=== PATIENT | male | born 1980 | race Caucasian/White ===

== ENCOUNTER 2018-08-16 12:28 | Emergency (ER) | payer MEDICAID, OTHER, SELFPAY ==
[~2018-08-16] VITALS: Ht 180.3 cm; Wt 80.6 kg
[2018-08-16 12:29] VITALS: BP 136/94
[2018-08-16] MEDS ORDERED: FLUORESCEIN OPHTH 1 MG STRIP OS ONE (13:15)
[2018-08-16] MEDS ORDERED: ERYTHROMYCIN OPHTH OINT OS ONE (13:15)
[2018-08-16] MEDS ORDERED: TETRACAINE 0.5% OPHTH SOLN 4ML OS ONE (13:15)
[2018-08-16] MEDS ORDERED: ERYT1OIN26 OS (13:18)
== END 2018-08-16 13:26 | disposition home or self-care (01) ==
LOC: M ED 12:28
DX: S05.02XA Injury of conjunctiva and corneal abrasion without foreign body, left eye, initial encounter (principal); X58.XXXA Exposure to other specified factors, initial encounter; Y92.9 Unspecified place or not applicable; Y93.9 Activity, unspecified; Y99.9 Unspecified external cause status; R51 Headache; Z91.040 Latex allergy status

== ENCOUNTER 2020-04-14 09:47 | Emergency (ER) | payer MEDICAID, OTHER ==
[~2020-04-14] VITALS: Ht 180.3 cm; Wt 81.8 kg
[~2020-04-14 09:47] MED LIST: ERYT5OIN25 OS
--- OUTSIDE RECORDS SUMMARY | 2020-04-14 09:54 | CCD ---
Author Author [facility] Organization [facility] Address Unknown Phone Unavailable Care Team Providers Care Bottle Dealer Name Role Phone Giovana ALCOCER MD Unavailable Unavailable Giovana ALCOCER MD Unavailable Unavailable Giovana ALCOCER MD Unavailable Unavailable Giovana ALCOCER MD Unavailable Unavailable Giovana ALCOCER MD Unavailable Unavailable Giovana ALCOCER MD Unavailable Unavailable Giovana ALCOCER MD Unavailable Unavailable Giovana ALCOCER MD Unavailable Unavailable Giovana ALCOCER MD Unavailable Unavailable Giovana ALCOCER MD Unavailable Unavailable Giovana ALCOCER MD Unavailable Unavailable Giovana ALCOCER MD Unavailable Unavailable Giovana ALCOCER MD Unavailable Unavailable Giovana ALCOCER MD Unavailable Unavailable Giovana ALCOCER MD Unavailable Unavailable Giovana ALCOCER MD Unavailable Unavailable Giovana ALCOCER MD Unavailable Unavailable Giovana ALCOCER MD Unavailable Unavailable Giovana ALCOCER MD Unavailable Unavailable Giovana ALCOCER MD Unavailable Unavailable Giovana ALCOCER MD Unavailable Unavailable Giovana ALCOCER MD Unavailable Unavailable Giovana ALCOCER MD Unavailable Unavailable Giovana ALCOCER MD Unavailable Unavailable Giovana ALCOCER MD Unavailable Unavailable Giovana ALCOCER MD Unavailable Unavailable Giovana ALCOCER MD Unavailable Unavailable Giovana ALCOCER MD Unavailable Unavailable Giovana ALCOCER MD Unavailable Unavailable Giovana ALCOCER MD Unavailable Unavailable Giovana ALCOCER MD Unavailable Unavailable Giovana ALCOCER MD Unavailable Unavailable Giovana ALCOCER MD Unavailable Unavailable Giovana ALCOCER MD Unavailable Unavailable Giovana ALCOCER MD Unavailable Unavailable Giovana ALCOCER MD Unavailable Unavailable Giovana ALCOCER MD Unavailable Unavailable Giovana ALCOCER MD Unavailable Unavailable Giovana ALCOCER MD Unavailable Unavailable Giovana ALCOCER MD Unavailable Unavailable Giovana ALCOCER MD Unavailable Unavailable Gioavna ALCOCER MD Unavailable Unavailable Giovaan ALCOCER MD Unavailable Unavailable Giovana ALCOCER MD Unavailable Unavailable Giovana ALCOCER MD Unavailable Unavailable Giovana ALCOCER MD Unavailable Unavailable Giovana ALCOCER MD Unavailable Unavailable Giovana ALCOCER MD Unavailable Unavailable Giovana ALCOCER MD Unavailable Unavailable Giovana ALCOCER MD Unavailable Unavailable Giovana ALCOCER MD Unavailable Unavailable Giovana ALCOCER MD Unavailable Unavailable Giovana ALCOCER MD Unavailable Unavailable Giovana ALCOCER MD Unavailable Unavailable Giovana ALCOCER MD Unavailable Unavailable Giovana ALCOCER MD Unavailable Unavailable Giovana ALCOCER MD Unavailable Unavailable Giovana ALCOCER MD Unavailable Unavailable Giovana ALCOCER MD Unavailable Unavailable Giovana ALCOCER MD Unavailable Unavailable Giovana ALCOCER MD Unavailable Unavailable Giovana ALCOCER MD Unavailable Unavailable Giovana ALCOCER MD Unavailable Unavailable Giovana ALCOCER MD Unavailable Unavailable Giovana ALCOCER MD Unavailable Unavailable Giovana ALCOCER MD Unavailable Unavailable Giovana ALCOCER MD Unavailable Unavailable Giovana ALCOCER MD Unavailable Unavailable Giovana ALCOCER MD Unavailable Unavailable Giovana ALCOCER MD Unavailable Unavailable Giovana ALCOCER MD Unavailable Unavailable Giovana ALCOCER MD Unavailable Unavailable CARLYN, T ALY HELLER Unavailable Unavailable CARLYN, T ALY HELLER Unavailable Unavailable CARLYN, T ALY HELLER Unavailable Unavailable CARLYN, T ALY HELLER Unavailable Unavailable CARLYN, T ALY HELLER Unavailable Unavailable CARLYN, T ALY HELLER Unavailable Unavailable CARLYN, T ALY HELLER Unavailable Unavailable CARLYN, T ALY HELLER Unavailable Unavailable CARLYN, T ALY HELLER Unavailable Unavailable CARLYN, T ALY HELLER Unavailable Unavailable CARLYN, T ALY HELLER Unavailable Unavailable Re-disclosure Warning The records that you are about to access may contain information from federally-assisted alcohol or drug abuse programs. If such information is present, then the following federally mandated warning applies: This information has been disclosed to you from records protected by federal confidentiality rules (42 CFR part 2). The federal rules prohibit you from making any further disclosure of this information unless further disclosure is expressly permitted by the written consent of the person to whom it pertains or as otherwise permitted by 42 CFR part 2. A general authorization for the release of medical or other information is NOT sufficient for this purpose. The Federal rules restrict any use of the information to criminally investigate or prosecute any alcohol or drug abuse patient.The records that you are about to access may contain highly sensitive health information, the redisclosure of which is protected by Article 27-F of the [facility] Public Health law. If you continue you may have access to information: Regarding HIV / AIDS; Provided by facilities licensed or operated by the [facility] Office of Mental Health; or Provided by the [facility] Office for People With Developmental Disabilities. If such information is present, then the following [facility] mandated warning applies: This information has been disclosed to you from confidential records which are protected by state law. State law prohibits you from making any further disclosure of this information without the specific written consent of the person to whom it pertains, or as otherwise permitted by law. Any unauthorized further disclosure in violation of state law may result in a fine or alf sentence or both. A general authorization for the release of medical or other information is NOT sufficient authorization for further disc losure. Family History Family Member Name Family Member Gender Family Member Status Date o f Status Description Data Source(s) Unknown Unknown Problem [facility] ([facility] Encounters Encounter Providers Location Date Indications Data Source(s ) Outpatient Attender: ALY ALCOCER MD 11/26/2019 11:58:01 A [facility] Outpatient Attender: ALY ALCOCER MD 11/26/2019 11:58:00 [facility] Outpatient Attender: ALY ALCOCER MD 07/28/2019 12:03:08 A [facility] Outpatient Attender: ALY ALCOCER MD 05/16/2019 02:31:00 [facility] Outpatient Attender: ALY ALCOCER MD 05/15/2019 01:33:01 P [facility] Outpatient Attender: ALY ALCOCER MD 05/15/2019 01:32:01 P [facility] Outpatient Attender: ALY ALCOCER MD 05/15/2019 01:31:00 P [facility] Outpatient Attender: ALY ALCOCER MD 05/15/2019 01:30:02 P [facility] Outpatient Attender: ALY ALCOCER MD 05/15/2019 01:29:01 P [facility] Outpatient Attender: ALY ALCOCER MD 05/15/2019 12:50:02 P [facility] Outpatient Attender: ALY ALCOCER MD 05/15/2019 12:47:00 P [facility] Outpatient Attender: ALY ALCOCER MD 05/15/2019 12:44:00 P [facility] Outpatient Attender: ALY ALCOCER MD 04/16/2019 08:56:[address] [facility] Outpatient Attender: ALY ALCOCER MD 04/16/2019 08:56:[address] [facility] Outpatient Attender: ALY ALCOCER MD 04/16/2019 08:54:[address] [facility] Outpatient Attender: ALY ALCOCER MD 04/16/2019 08:08:01 A [facility] Family Health Insurance Providers Payer name Policy type / Coverage type Policy ID Covered democrat ID Covered democrat's relationship to gallagher Policy Gallagher Plan Information EMEDNY [id number] SP [id number] Self Pay P [id number] S [id number] Self Pay P UNAVAILABLE S UNAVAILA BLE Managed Care Lawson Rubalcava [id number] S [id number] Medicaid S [id number] S [id number] MEDICAID [id number] SP [id number] SELF PAY ONLY [id number] SP [id number] MEDICAID [id number] SP [id number] UN COMMUNITY PLAN [facility] [id number] SP [id number] [facility] O [id number] S [id number] SELF PAY UNAVAILABLE SP UNAVAILA BLE UNHC AMERICHOICE XIX -HMO [id number] [id number] [facility] Community Plan Health Maintenance Organization (HMO) Self MEDICAID S [id number] S [id number] WORKERS COMP W/OI NFO P FABCO S FABCO HMO BLUE [id number] SP [id number] Problems, Conditions, and Diagnoses Code Display Name Description Problem Type Effective Dates Data Source(s) K62.89 Other specified diseases of anus and rectum Rectal madeleine n 11/26/2019 11:57:11 AM EDT [facility] [id number] Acute upper respiratory infection, unspe cified Acute upper respiratory infection, unspecified 04/16/2019 08:55:48 AM [facility] 487.1 Influenza Influenza 04/16/2019 08:55:48 AM [facility] [id number] Unspecified asthma with (acute) exacerba tion Unspecified asthma with (acute) exacerbation 04/16/2019 08:55:48 AM [facility] Results ID Date Data Source [id number] 11/26/2019 11:03:20 AM [facility] Measurements & CalculationsHeight: 71 inches (5 ft. 11 in.) 180.34 cm Weight: 188 pounds 85.45 kg Body Mass Index (BMI): 26.32BMI Interpretation: OverweightBody Surface Area (BSA): 2.06Weight Management Education Done (Nutrition/Physical Activity)Vital SignsTemperature: 97.3FPulse Rate: 83 beats/minuteRespiratory Rate: 16 respirations/minuteBlood Pressure: 116/92 Vital Signs performed by: Yana Blake MA, November 26, 2019 11:12 AMInitial Intake Information From: patientRoom #: 13Infectious Disease / Travel ScreeningRecent travel for you or any close contacts? NoHave you had any close contact with anyone diagnosed with or under investigation for COVID-19 (coronavirus)? NoFever? NoRespiratory symptoms: cough, cold, congestion, shortness of breath, difficulty breathing? NoLoss of smell? NoLoss of taste? NoSmoking, Tobacco, Vaping or Smoke Exposure StatusSmoke Status: never smokerTobacco Use: NoDo you vape? NoHealthcare HistorySince your last office visit...Have you been admitted to the hospital? NoHave you been to an emergency room (ER) or urgent care clinic? NoHave you seen another healthcare provider? NoHave you seen a dentist? Yes - NOCOIntake performed by: Yana Blake MA, November 26, 2019 11:10 AMRate Your HealthIn general, would you say your health is? Very GoodPain AssessmentAre you currently having any pain which... You would like your provider to address? No Affects your activity level? NoDepression Screening - PHQ-2Over the last two weeks, have you... Had little interest or pleasure in doing things? Not at all Been feeling down, depressed, or hopeless? Not at all PHQ-2 Score: 0Anxiety Screening - WEI-2Over the last two weeks, have you been... Feeling nervous, anxious, or on edge? Not at all Unable to stop or control worrying? Not at all WEI-2 Score: 0Screening, Brief Intervention, & Referral to Treatment (SBIRT)Pre-Screening Questions How many times have you have 5 or more drinks in a day? 0How many times have you used an illegal drug or used a prescription medication for a non-medical reason? 365Performed by: Yana Blake MA, November 26, 2019 11:10 AMPatient History Medical History:AsthmaSurgical History:AppendectomyFamily History:Hypertension (Mother, Maternal Grandmother)Hypertension (Father)Stroke (Mother, Father)Cancer - Unknown (Maternal Grandmother, Maternal Grandfather, Paternal Grandmother, Paternal Grandfather)Social/Personal History: Chief Complaintpossible hemorrhoidsHistory of Present Illness (HPI)Has had rectal discomfort, burning with BMs for the past 4-5 years. No better and no worse with time. Some relief with hemorrhoid cream and warm soaks. No other GI symptoms.His family was recently exposed to COVID 19. He has been asymptomatic.They reportedly all tested negative and he is requesting a note to go back to work. He is given one today.HPI performed by: Surya Valdez MD, November 26, 2019 11:49 AMTransitions of Care InboundProblem ReviewProblem List was reviewed and/or updated during this visit.Medication Reconciliation & ReviewMedication List was reviewed and/or updated during this visit, including review of any stll-rml-mmpsjwy medications, herbal therapies, and/or supplements.Allergy ReviewAllergy List was reviewed and/or updated during this visit.Adult Preventive CareProvider Calculated and Reviewed all Clinical Protocols for patient today. Labs/Meds/Other Counseling- Nutrition and Physical Activity:BMI Interpretation: Overweight (11/26/2019) Counseling: Done (11/26/2019) Physical Activity: Done (11/26/2019)Review of Systems General: Denies dizziness, fatigue. Cardiovascular: Denies chest pain. Respiratory: Denies shortness of breath. Gastrointestinal: Denies diarrhea, constipation. Genitourinary: Denies burning with urination, urinary frequency, urinary urgency. Physical ExamGeneral Appearance: well nourished, well hydrated, no acute distressRespiratory, Auscultation: clear to auscultation bilaterally; no rales, rhonchi, or wheezesRespiratory, Effort: no intercostal retractions or use of accessory musclesCardiovascular, Auscultation: S1, S2 audible; no murmur, rub, or gallop; RRRSkin, Inspection: Small hemorrhoid noted and possible anal fissure.Care Management Plan Transitions of CareInboundRate Your HealthIn general, would you say your health is? Very GoodAssessment & Plan Problems:Added: Rectal pain (ICD-569.42) (JVM62-O71.89) Assessment: Instructions: Possibly hemorrhoid, possibly anal fissure.Will refer to colorectal surgeon.Patient Instructions/Care Plan: Rectal pain: Possibly hemorrhoid, possibly anal fissure.Will refer to colorectal surgeon. Plan developed in collaboration with patient and/or familyMedications:ALLERGY RELIEF TABLETPROAIR HFA 108 (90 BASE) MCG/ACT INHALATION AEROSOL SOLUTIONADVIL 200 MG ORAL CAPSULEMedication Changes:Added: ALLERGY RELIEF TABLET-prnRemoved:AZITHROMYCIN 250 MG ORAL TABLET-2 tabs po day 1, then one tab po QD, CEFDINIR 300 MG ORAL CAPSULE-2 caps po QDAllergies:* LATEX (Critical)* LEMON (Critical)Orders:Adult - Ofc Vst, EST, Level III [CPT- 55124] Surgical Consult [CPT-41085] ____ Name Value Range Interpretation Code Description Data Shyanne rce(s) Supporting Document(s) ID Date Data Source [id number] 05/15/2019 12:47:18 PM EDT [facility] Measurements & CalculationsHeight: 71 inches (5 ft. 11 in.) 180.34 cm Weight: 190 pounds 86.36 kg Body Mass Index (BMI): 26.60BMI Interpretation: OverweightBody Surface Area (BSA): 2.07Weight Management Education Done (Nutrition/Physical Activity)Vital SignsTemperature: 98.4F oral Pulse Rate: 100 beats/minuteRespiratory Rate: 18 respirations/minuteBlood Pressure: 123/88 right arm sitting automaticO2 Saturation: 94% room airVital Signs performed by: Irvin Fam MA, May 15, 2019 1:03 PMInitial Intake Information from: patientRoom #: 14Smoking, Tobacco, Vaping or Smoke Exposure StatusSmoke Status: never smokerTobacco Use: NoDo you vape? NoPassive Smoke Exposure: NoHealthcare HistorySince your last office visit...Have you been admitted to the hospital? NoHave you been to an emergency room (ER) or urgent care clinic? NoHave you seen another healthcare provider? NoHave you seen a dentist? Yes - NOCOIntake performed by: Irvin Fam MA, May 15, 2019 12:52 PMRate Your HealthIn general, would you say your health is? GoodPain AssessmentAre you currently having any pain which... You would like your provider to address? Yes Affects your activity level? YesDepression Screening - PHQ-2Over the last two weeks, have you... Had little interest or pleasure in doing things? Not at all Been feeling down, depressed, or hopeless? Not at all PHQ-2 Score: 0Anxiety Screening - WEI-2Over the last two weeks, have you been... Feeling nervous, anxious, or on edge? Not at all Unable to stop or control worrying? Not at all WEI-2 Score: 0Food InsecurityWithin the past year...Did you worry whether your food would run out before you got money to buy more? NoWas there a time when the food you bought didn't last and you didn't have money to get more? NoInfectious Disease / Travel ScreeningRecent travel for you, your family, and/or any sexual partners? NoPain AssessmentPain ScaleNumeric Rating Scale: 7 / 10Location: backDuration: 1 monthFrequency: DailyCharacter/Quality: aching and stabbingIs the pain radiating? NoScreening, Brief Intervention, & Referral to Treatment (SBIRT)Pre-Screening Questions How many times have you have 5 or more drinks in a day? 0How many times have you used an illegal drug or used a prescription medication for a non-medical reason? 0Performed by: Irvin Fam MA, May 15, 2019 12:54 PMPatient History Family History:Hypertension (Mother, Maternal Grandmother)Hypertension (Father)Stroke (Mother, Father)Cancer - Unknown (Maternal Grandmother, Maternal Grandfather, Paternal Grandmother, Paternal Grandfather)Social/Personal History: Chief Complaintpossible strepHistory of Present Illness (HPI)38 yr old male Pt here today for strep like symptoms. Pt is complaining of soar throat and back pain. Pt states he feels drained and was sent home from work. Pt is also complaing of SOB with activity. Johny Hinojosa MA, am scribing for, and in the presence of, Al Porras, DO pt states he had strep last month he was achy. pt states they cleaned theyre house well they changed toothbrushes, they took all pre cautions. pt states he is having the same symptoms as before. DO states pt does have strep again. pt complains of a runny nose that does not stop. pt advised to drink hot liquid with honey. for the cough that he has with out phlegm coming up. pt is congested in his lungs. pt states he has been sick since about january. pt states it comes an goes with treatment. pt states that he has started having diahreea today. pt advised to eat yogurt. Transitions of Care InboundProblem ReviewProblem List was reviewed and/or updated during this visit.Medication Reconciliation & ReviewMedication List was reviewed and/or updated during this visit, including review of any uieu-ffk-mqngzcx medications, herbal therapies, and/or supplements.Allergy ReviewAllergy List was reviewed and/or updated during this visit.Adult Preventive CareProvider Calculated and Reviewed all Clinical Protocols for patient today. Labs/Meds/Other Counseling- Nutrition and Physical Activity:BMI Interpretation: Overweight (05/15/2019) Counseling: Done (05/15/2019) Physical Activity: Done (05/15/2019)Review of Systems General: Complains of chills, sweats. Ears/Nose/Throat: Complains of nasal congestion, runny nose, sore throat. Cardiovascular: Denies chest pain, palpitations, feeling faint, trouble breathing w/exertion, SOB upon lying down, SOB at night, peripheral edema, elevated blood pressure, decreased heart rate. Respiratory: Complains of cough, shortness of breath. Gastrointestinal: Complains of diarrhea. Musculoskeletal: Complains of body aches. Physical ExamGeneral Appearance: appears sickNasal: turbs congestedPharynx: throat beefy redRespiratory, Auscultation: moderate rhonchiRespiratory, Effort: no intercostal retractions or use of accessory musclesCardiovascular, Auscultation: S1, S2 audible; no murmur, rub, or gallop; RRRAbdomen: soft, non-tender, no masses, bowel sounds normalGait & Station: normalOrientation: oriented to time, place, and personMood & Affect: no depression, anxiety, or agitationJudgment & Insight: intactCare Management Plan Transitions of CareInboundRate Your HealthIn general, would you say your health is? GoodAssessment & Plan Assessment not SavedAcute upper respiratory infection; unspecified (QYG14-F22.9): restart abx. Use theraflu for sx.Medications:AZITHROMYCIN 250 MG ORAL TABLETCEFDINIR 300 MG ORAL CAPSULEPROAIR HFA 108 (90 BASE) MCG/ACT INHALATION AEROSOL SOLUTIONADVIL 200 MG ORAL CAPSULEMedication Changes:New Prescription:CEFDINIR 300 MG ORAL CAPSULE-2 caps po QD Qty: 20[Capsule] Refills: 0 Method: ElectronicAZITHROMYCIN 250 MG ORAL TABLET-2 tabs po day 1, then one tab po QD Qty: 6[Tablet] Refills: 6 Method: ElectronicRemoved:* ALBUTEROLAllergies:* LATEX (Critical)* LEMON (Critical)Orders:Adult - Ofc Vst, EST, Level III [CPT- 00811] Medications:AZITHROMYCIN 250 MG ORAL TABLET (AZITHROMYCIN) 2 tabs po day 1, then one tab po QD #6[Tablet] x 6 Route:ORAL Entered and Authorized by: Al Porras DO Method used: Electronically to [facility]* (retail) [address] [place] [address] Note to Pharmacy: Route: ORAL; RxID: [id number] 300 MG ORAL CAPSULE (CEFDINIR) 2 caps po QD #20[Capsule] x 0 Route:ORAL Entered and Authorized by: Al Porras DO Method used: Electronically to [facility] (retail) [address] [place] [address] Note to Pharmacy: Route: ORAL; RxID: [id number]][Immunization Management] Name Value Range Interpretation Code Description Data Shyanne rce(s) Supporting Document(s) ID Date Data Source [id number] 04/16/2019 08:15:45 AM [facility] Measurements & CalculationsHeight: 71 inches 180.34 cm Weight: 185.2 pounds 84.18 kg Body Mass Index (BMI): 25.92BMI Interpretation: OverweightBody Surface Area (BSA): 2.04Weight Management Education Done (Nutrition/Physical Activity)Vital SignsTemperature: 98.8F oral Pulse Rate: 112 beats/minuteRespiratory Rate: 22 respirations/minuteBlood Pressure: 101/61 left arm sitting automaticO2 Saturation: 99% room airVital Signs performed by: Johny Manrique MA, April 16, 2019 8:23 AMInitial Intake Information from: [facility] #: 13Smoking, Tobacco, Vaping or Smoke Exposure StatusSmoke Status: never smokerDo you vape? NoPassive Smoke Exposure: NoHealthcare HistorySince your last office visit...Have you been admitted to the hospital? NoHave you been to an emergency room (ER) or urgent care clinic? NoHave you seen another healthcare provider? NoHave you seen a dentist? Yes - NOCOIntake performed by: Johny Manrique MA, April 16, 2019 8:23 AMRate Your HealthIn general, would you say your health is? FairPain AssessmentAre you currently having any pain which... You would like your provider to address? Yes Affects your activity level? YesInfectious Disease / Travel ScreeningRecent travel for you, your family, and/or any sexual partners? NoPain AssessmentLocation: backCharacter/Quality: stabbingIs the pain radiating? YesTo what body part(s) is the pain radiating? whole back down to legsScreening, Brief Intervention, & Referral to Treatment (SBIRT)Pre-Screening Questions How many times have you have 5 or more drinks in a day? 0How many times have you used an illegal drug or used a prescription medication for a non-medical reason? 0Performed by: Johny Manrique MA, April 16, 2019 8:24 AMPatient History Medical History:AsthmaSurgical History:AppendectomyFamily History:Hypertension (Mother, Maternal Grandmother)Hypertension (Father)Stroke (Mother, Fat her)Social/Personal History: Chief Complaintpossibe fluHistory of Present Illness (HPI)IDeepika MA, am scribing for and in the presence of, Dr Al Porras, DO38 yo male here for a walk in [facility] for possible flu.gagging, hard to breathe, pt throwing up, pt did not sleep last night, temp of 103,. pt stated he cannot keep down fluid. headache for three days. body tremors, hot and cold. sweating. has been exposed to flu A.patient is wheezing. states that he is still having the pain from his R Shoulder & neck. Theraflu OTC for Cold & Flu, have advised to use this in warm water. have advsied to use the BRAT diet. Taken out of work until 04/22/2019Coughing up yellow/green phlegm and after PE found tht fazal does have strep, will send antibiotics for this as well. Transitions of Care InboundProblem ReviewProblem List was reviewed and/or updated during this visit.Medication Reconciliation & ReviewMedication List was reviewed and/or updated during this visit, including review of any uhza-oso-dtwdhds medications, herbal therapies, and/or supplements.Allergy ReviewAllergy List was reviewed and/or updated during this visit.Adult Preventive CareLabs/Meds/Other Counseling-Nutrition and Physical Activity:BMI Interpretation: Overweight (04/16/2019) Counseling: Done (04/16/2019) Physical Activity: Done (04/16/2019)Review of Systems General: Complains of chills, fatigue, fever, headache, feeling ill, sweats, night sweats, sleep disturbances. fever tp 103Ears/Nose/Throat: Complains of runny nose, sore throat. coughing up copious green sputumCardiovascular: Complains of SOB upon lying down, SOB at night. Respiratory: Complains of cough, difficulty breathing, shortness of breath, wheezing. Gastrointestinal: Complains of diarrhea. Physical ExamGeneral Appearance: not feeling wellEyes, External: conjunctivae and lids normal, EOMIExternal Ears: normal, no lesions or deformitiesHearing: grossly intactOtoscopy: canals clear, tympanic membranes intact, no fluid, light reflex intact bilaterallyExternal Nose: normal, no lesions or deformitiesNasal: mucosa, septum, and turbinates normal, nares patentLips/Teeth/Gums: normal dentition, no gingival inflammation, no labial lesionsPharynx: throat beefy redRespiratory, Auscultation: bilat wheezes/rhonciRespiratory, Effort: no intercostal retractions or use of accessory musclesCardiovascular, Auscultation: S1, S2 audible; no murmur, rub, or gallop; RRRPeripheral Circulation: no clubbing, cyanosis, edema, or varicositiesAbdomen: soft, non-tender, no masses, bowel sounds normalGait & Station: normalSkin, Inspection: no rashes, lesions, or ulcerationsOrientation: oriented to time, place, and personMood & Affect: no depression, anxiety, or agitationJudgment & Insight: intactCare Management Plan Transitions of CareInboundRate Your HealthIn general, would you say your health is? FairAssessment & Plan Problems:Added: Unspecified asthma with (acute) exacerbation (CCF08-G70.901)Influenza (ICD-487.1) (XZG84-L94.1)Acute upper respiratory infection, unspecified (FHC24-Z45.9)Assessment not SavedAcute upper respiratory infection; unspecified (VEV16-X77.9): coupled w/flu with wheezing, prescribed Ceftin, OTC cold medsMedications:PROAIR HFA 108 (90 BASE) MCG/ACT INHALATION AEROSOL SOLUTIONCEFUROXIME AXETIL 500 MG ORAL TABLETADVIL 200 MG ORAL CAPSULEALBUTEROLMedication Changes:Refilled:* ALBUTEROL Qty: 0 Refills: 0 Me thod: Print then Give to PatientNew Prescription:CEFUROXIME AXETIL 500 MG ORAL TABLET-one tablet po BID X 10 days Qty: 20[Tablet] Refills: 0 Method: ElectronicPROAIR HFA 108 (90 BASE) MCG/ACT INHALATION AEROSOL SOLUTION-2 puffs q 4h prn SOB Qty: 1[Inhaler] Refills: 3 Method: ElectronicRemoved:CHANTIX CONTINUING MONTH LENY 1 MG ORAL TABLET-uad- begin after starter pack completed Qty: 1[Tablet] Refills: 5, CHANTIX STARTING MONTH LENY 0.5 MG X 11 & 1 MG X 42 ORAL TABLET-uad Qty: 1[Tablet] Refills: 0Allergies:* LATEX (Critical)* LEMON (Critical)Orders:Adult - Ofc Vst, EST, Level IV [CPT-41727] ] Name Value Range Interpretation Code Description Data Shyanne rce(s) Supporting Document(s) Procedure
[2020-04-14] MEDS ORDERED: CYCLOBENZAPRINE 10MG TABLET PO ONE (10:30)
[2020-04-14] MEDS ORDERED: KETOROLAC TROMETHAMINE 10 MG TAB PO ONE (10:30)
--- NOTE | 2020-04-14 10:38 | REP ---
INDICATION: direct blow COMPARISON: None. TECHNIQUE: Internal rotation, external rotation, and Y view. FINDINGS: No acute fracture or dislocation. The acromioclavicular and glenohumeral joints are intact. No periarticular calcifications or degenerative changes are appreciated. Sub acromial space is normal. Surrounding soft tissues are unremarkable. IMPRESSION: Normal right shoulder radiographs. <Electronically signed by Angel Metzger > 04/14/20 5541
--- NOTE | 2020-04-14 10:40 | REP ---
INDICATION: direct blow then fall COMPARISON: None. TECHNIQUE: Frontal view of the chest with multiple views of the right hemithorax. FINDINGS: Frontal view of the chest demonstrates no acute cardiopulmonary process, contusion, effusion, or pneumothorax. Multiple views of the right hemithorax demonstrates no acute rib fracture/injury or pathology. IMPRESSION: Normal rib series. No acute fracture or trauma/injury appreciated. <Electronically signed by Angel Metzger > 04/14/20 1030
--- NOTE | 2020-04-14 10:53 | REP ---
INDICATION: blow to right shoulder then fell COMPARISON: None. TECHNIQUE: Axial noncontrast images from the skull base to the thoracic inlet with coronal and sagittal re-formations This CT examination was performed using the following dose reduction techniques: Automated exposure control, adjustment of mA and/or kv according to the patient's size, and use of iterative reconstruction technique. FINDINGS: Normal alignment and lordosis is maintained. Moderate multilevel degenerative changes include osteophytosis, endplate sclerosis, and disc space narrowing. No acute fracture/compression injury or subluxation. Spinal canal is grossly patent. Posterior elements and spinous processes are intact. Paravertebral soft tissues are within normal limits. IMPRESSION: Moderate multilevel degenerative spondylosis. No acute fracture/compression injury or subluxation. <Electronically signed by Angel Metzger > 04/14/20 104
--- NOTE | 2020-04-14 10:56 | REP ---
INDICATION: blow to right shoulder then fell. COMPARISON: None. TECHNIQUE: Axial noncontrast images of the thoracic spine with coronal and sagittal reformations. FINDINGS: Thoracic vertebral bodies are intact and without acute fracture/compression injury or subluxation. Alignment and kyphosis maintained. Disc spaces are normal. Spinal canal is patent and normal. Posterior elements and spinous processes are intact. Paravertebral soft tissues are normal. IMPRESSION: Normal thoracic spine CT. No evidence for acute trauma/injury. <Electronically signed by Angel Metzger > 04/14/20 6759
--- NOTE | 2020-04-14 10:58 | REP ---
INDICATION: blow to right shoulder then fell. COMPARISON: None. TECHNIQUE: Axial noncontrast images of the lumbosacral spine from mid T12 through mid sacrum with coronal and sagittal reformations. This CT examination was performed using the following dose reduction techniques: Automated exposure control, adjustment of mA and/or kv according to the patient's size, and use of iterative reconstruction technique. FINDINGS: Alignment and lordosis maintained. Vertebral bodies are intact. Posterior elements and spinous processes are intact. There is no evidence for acute fracture/compression injury or subluxation. The spinal canal is patent. There is relatively mild degenerative changes including marginal osteophyte formation with very minimal disc space narrowing at L3-4 and to a lesser extent L2-3 and L4-5. The paravertebral soft tissues are normal. IMPRESSION: Mild multilevel degenerative spondylosis.. No evidence for acute fracture/compression injury or subluxation. <Electronically signed by Angel Metzger > 04/14/20 1055
--- OUTSIDE RECORDS SUMMARY | 2020-04-14 11:04 | CCD ---
Author Author [facility] Organization [facility] Address Unknown Phone Unavailable Care Team Providers Care Travel Attendants Name Role Phone Giovana ALCOCER MD Unavailable [...] Unavailable Unavailable Giovana ALCOCER MD Unavailable Unavailable Giovnaa ALCOCER MD Unavailable Unavailable Giovana ALCOCER MD [...] ALY HELLER Unavailable Unavailable CARLYN, T ALY MD Unavailable Unavailable CARLYN, T ALY MD Unavailable Unavailable CARLYN, T ALY MD Unavailable Unavailable CARLYN, T ALY MD Unavailable Unavailable CARLYN, T ALY MD Unavailable Unavailable CARLYN, T ALY MD Unavailable Unavailable CARLYN, T ALY HELLER Unavailable Unavailable CARLYN, T ALY MD Unavailable Unavailable CARLYN, T ALY MD Unavailable Unavailable CARLYN, T ALY MD Unavailable Unavailable Re-disclosure Warning The records that [...] is protected by Article 27-F of the [facility] Public [employer] law. If you continue you may have access to information: Regarding HIV / AIDS; Provided by facilities licensed or operated by the [facility] Office of Mental Health; or Provided by the [facility] Office for People With Developmental Disabilities. If such information is present, then the following [facility] mandated warning applies: This information has been [...] law may result in a fine or custodial sentence or both. A general authorization for [...] Attender: ALY ALCOCER MD 11/26/2019 11:58:01 A [facility] Outpatient Attender: ALY ALCOCER MD 11/26/2019 11:58:00 A [facility] Outpatient Attender: ALY ALCOCER MD 07/28/2019 12:03:08 A [facility] Outpatient Attender: ALY ALCOCER MD 05/16/2019 02:31:00 P [facility] Outpatient Attender: ALY ALCOCER MD 05/15/2019 01:33:01 P [facility] Outpatient Attender: ALY ALCOCER MD 05/15/2019 01:32:01 P [facility] Outpatient Attender: ALY ALCOCER MD 05/15/2019 01:31:00 P [facility] Outpatient Attender: ALY ALCOCER MD 05/15/2019 01:30:02 P [facility] Outpatient Attender: ALY ALCOCER MD 05/15/2019 01:29:01 P [facility] Outpatient Attender: ALY ALCOCER MD 05/15/2019 12:50:02 P [facility] Outpatient Attender: ALY ALCOCER MD 05/15/2019 12:47:00 P [facility] Outpatient Attender: ALY ALCOCER MD 05/15/2019 12:44:00 P [facility] Outpatient Attender: ALY ALCOCER MD 04/16/2019 08:56:02 A [facility] Outpatient Attender: ALY ALCOCER MD 04/16/2019 08:56:01 A [facility] Outpatient Attender: ALY ALCOCER MD 04/16/2019 08:54:00 A [facility] Outpatient Attender: ALY ALCOCER MD 04/16/2019 08:08:01 A [facility] Family Health Insurance Providers Payer name Policy type / Coverage type Policy ID Covered alliance party ID Covered alliance party's relationship to gallagher Policy Gallagher Plan Information DUFFANYS PAINT [employer] BODY [id number] SP [id number] DUFFANYS [id number] SP [id number] EMEDNY [id number] SP [id number] Self Pay P [id number] S [id number] Self Pay P UNAVAILABLE S UNAVAILA BLE Managed Care Lawson P [id number] S [id number] Medicaid S [id number] S [id number] MEDICAID [id number] SP [id number] SELF PAY ONLY [id number] SP [id number] MEDICAID [id number] SP [id number] [facility] [id number] SP [id number] [facility] O [id number] S [id number] SELF PAY UNAVAILABLE SP UNAVAILA BLE [facility] AMERICHOICE XIX -HMO [id number] 18 [id number] [facility] Community Plan Health Maintenance Organization (HMO) Self MEDICAID S [id number] S [id number] WORKERS COMP W/OI NFO P FABCO S FABCO HMO BLUE [id number] SP [id number] Problems, Conditions, and Diagnoses Code Display Name Description Problem Type Effective Dates Data Source(s) K62.89 Other specified diseases of anus and rectum Rectal madeleine n 11/26/2019 11:57:11 AM [facility] [id number] Acute upper respiratory infection, unspe cified Acute upper respiratory infection, unspecified 04/16/2019 08:55:48 AM [facility] 487.1 Influenza Influenza 04/16/2019 08:55:48 AM [facility] [id number] Unspecified asthma with (acute) exacerba tion Unspecified asthma with (acute) exacerbation 04/16/2019 08:55:48 AM [facility] Results ID Date Data Source [id number] 11/26/2019 11:03:20 AM [facility] Measurements & CalculationsHeight: 71 inches [...] during this visit, including review of any bepm-rux-magaitv medications, herbal therapies, and/or supplements.Allergy ReviewAllergy List [...] GoodAssessment & Plan Problems:Added: Rectal pain (ICD-569.42) (PYX59-X74.89) Assessment: Instructions: Possibly hemorrhoid, possibly anal fissure.Will [...] - Ofc Vst, EST, Level III [CPT- 61990] Surgical Consult [CPT-07581] ____ Name Value Range Interpretation Code Description Data Shyanne rce(s) Supporting Document(s) ID Date Data Source [id number] 05/15/2019 12:47:18 PM EDT [facility] Measurements & CalculationsHeight: 71 inches (5 [...] is also complaing of SOB with activity. I, Johny Manrique MA, am scribing for, and in the presence of, Al Porras DO pt states he had strep last [...] during this visit, including review of any ktum-ywk-qpwkdrj medications, herbal therapies, and/or supplements.Allergy ReviewAllergy List [...] Assessment not SavedAcute upper respiratory infection; unspecified (QNC81-K16.9): restart abx. Use theraflu for sx.Medications:AZITHROMYCIN 250 [...] - Ofc Vst, EST, Level III [CPT- 74791] Medications:AZITHROMYCIN 250 MG ORAL TABLET (AZITHROMYCIN) 2 tabs po day 1, then one tab po QD #6[Tablet] x 6 Route:ORAL Entered and Authorized by: Al Porras DO [facility] [address] [place] [address] Note to Pharmacy: Route: ORAL; RxID: [id number] 300 MG ORAL CAPSULE (CEFDINIR) 2 caps po QD #20[Capsule] x 0 Route:ORAL Entered and Authorized by: Al Porras DO Method used: Electronically to [facility] ([facility]) [address] [place] [address] Note to Pharmacy: Route: ORAL; RxID: [id number]][Immunization Management] Name Value Range Interpretation Code Description Data Shyanne rce(s) Supporting Document(s) ID Date Data Source [id number] 04/16/2019 08:15:45 AM [facility] Measurements & CalculationsHeight: 71 inches 180.34 cm Weight: 185.2 pounds 84.18 kg Body Mass Index (BMI): 25.92BMI Interpretation: OverweightBody Surface Area (BSA): 2.04Weight Management Education Done (Nutrition/Physical Activity)Vital SignsTemperature: 98.8F oral Pulse Rate: 112 beats/minuteRespiratory Rate: 22 respirations/minuteBlood Pressure: 101/61 left arm sitting automaticO2 Saturation: 99% room airVital Signs performed by: Johny Manrique MA, April 16, 2019 8:23 AMInitial Intake Information from: ptRoom #: 13Smoking, Tobacco, Vaping or Smoke Exposure [...] History: Chief Complaintpossibe fluHistory of Present Illness (HPI)I, Deepika London MA, am scribing for and in the presence of, Dr Al Porras, DO38 yo male here for a walk in appt for possible flu.gagging, hard to breathe, pt [...] up yellow/green phlegm and after PE found david diehl does have strep, will send antibiotics for this as well. Transitions of Care InboundProblem ReviewProblem List was reviewed and/or updated during this visit.Medication Reconciliation & ReviewMedication List was reviewed and/or updated during this visit, including review of any dfcq-qgm-srezpyb medications, herbal therapies, and/or supplements.Allergy ReviewAllergy List [...] Plan Problems:Added: Unspecified asthma with (acute) exacerbation (KXW75-N29.901)Influenza (ICD-487.1) (CPU21-Z20.1)Acute upper respiratory infection, unspecified (EWR09-V81.9)Assessment not SavedAcute upper respiratory infection; unspecified (PSO29-B91.9): coupled w/flu with wheezing, prescribed Ceftin, OTC [...] (Critical)Orders:Adult - Ofc Vst, EST, Level IV [CPT-24590] ] Name Value Range Interpretation Code Description Data Shyanne rce(s) Supporting Document(s) Procedure
[2020-04-14] MEDS ORDERED: NAPR-837 PO (11:06)
[2020-04-14] MEDS ORDERED: CYCL5TAB PO (11:06)
[2020-04-14 11:15] VITALS: BP 143/72
== END 2020-04-14 11:12 | disposition home or self-care (01) ==
LOC: M ED 09:47
DX: S40.011A Contusion of right shoulder, initial encounter (principal); S29.012A Strain of muscle and tendon of back wall of thorax, initial encounter; S16.1XXA Strain of muscle, fascia and tendon at neck level, initial encounter; W22.8XXA Striking against or struck by other objects, initial encounter; Y92.89 Other specified places as the place of occurrence of the external cause; Y99.0 Civilian activity done for income or pay; J45.909 Unspecified asthma, uncomplicated; F90.9 Attention-deficit hyperactivity disorder, unspecified type; Z91.040 Latex allergy status; F17.220 Nicotine dependence, chewing tobacco, uncomplicated; F12.20 Cannabis dependence, uncomplicated

== ENCOUNTER → 2020-05-19 | Outpatient (REF) | payer MEDICAID, OTHER, SELFPAY ==
[~2020-05-19] MED LIST changes: +ACET-683 PO; +CYCL5TAB PO; +IBUP-1022 PO; +NAPR-837 PO; +PERC5TAB12 PO
== END ==
LOC: M LAB REF 13:19
PROVIDERS: ATTEND Physician Assistant
DX: R07.0 Pain in throat (principal)

== ENCOUNTER 2020-07-01 09:37 | Emergency (ER) | payer MEDICAID, OTHER, SELFPAY ==
[~2020-07-01] VITALS: Ht 180.3 cm; Wt 79.5 kg
[~2020-07-01 09:37] MED LIST changes: -ACET-683 PO; -IBUP-1022 PO; -PERC5TAB12 PO
[2020-07-01 09:38] VITALS: BP 149/77
[2020-07-01] MEDS ORDERED: IBUPROFEN 600MG TAB PO ONE (10:20)
[2020-07-01] MEDS ORDERED: CYCLOBENZAPRINE 10MG TABLET PO ONE (10:20)
[2020-07-01] MEDS ORDERED: PERCOCET 5MG/325MG TAB PO ONE (10:25)
--- NOTE | 2020-07-01 11:12 | REP ---
INDICATION: jump from height, left shoulder and back pain COMPARISON: None. TECHNIQUE: Three views left shoulder. FINDINGS: There is no evidence of acute fracture, dislocation, or intrinsic bone disease. IMPRESSION: No fracture or dislocation. <Electronically signed by Steven Peraza > 07/01/20 1102
--- NOTE | 2020-07-01 11:15 | REP ---
INDICATION: jump from height, left shoulder and back pain. COMPARISON: None. TECHNIQUE: Three views of the thoracic spine are provided. FINDINGS: Thoracic vertebral body heights are preserved. Alignment is normal. Minimal discogenic spurring is seen in the mid and lower thoracic levels on lateral radiograph. The pedicles and posterior elements are intact. No paravertebral soft tissue mass or swelling is seen. Swimmer's lateral view shows degenerative disc disease in the lower cervical spine. No fracture or collapse is seen. IMPRESSION: Mild degenerative disc changes. No fracture or collapse seen. <Electronically signed by Eligio Prajapati > 07/01/20 1111
--- NOTE | 2020-07-01 11:16 | REP ---
INDICATION: jump from height, left shoulder and back pain. COMPARISON: None. TECHNIQUE: Five views of the lumbar spine are obtained. FINDINGS: Lumbar vertebral body heights are preserved. Alignment is normal. No fracture or collapse is seen. There is degenerative disc space narrowing and anterior osteophyte formation at L3-4. Discogenic spurring is seen at L4-5 and L2-3 as well. There is no evidence of spondylolysis or spondylolisthesis. Pedicles and posterior elements are intact. Psoas margins are symmetric. Sacrum and SI joints are unremarkable. IMPRESSION: Degenerative disc disease changes. No traumatic abnormality noted. <Electronically signed by Eligio Prajapati > 07/01/20 1115
--- NOTE | 2020-07-01 11:16 | REP ---
INDICATION: jump from height, left shoulder and back pain. COMPARISON: None. TECHNIQUE: Full series cervical spine performed, 7 views. FINDINGS: There is no compression fracture or malalignment. There is normal cervical lordosis. There is no prevertebral soft tissue swelling. There is mild to moderate diffuse spurring of C4 through C7. There is mild disc space narrowing and subchondral sclerosis at C5-6 and C6-7. There is diffuse narrowing and spurring of the posterior facet joints. Oblique views suggest some degree of neural foraminal narrowing of C4-5, C5-6 and C6-7 on the right. IMPRESSION: Degenerative changes without definite fracture or dislocation. <Electronically signed by Steven Peraza > 07/01/20 111
[2020-07-01] MEDS ORDERED: ACET-683 PO (11:26)
[2020-07-01] MEDS ORDERED: IBUP-1022 PO (11:26)
[2020-07-01] MEDS ORDERED: CYCL5TAB PO (11:26)
[2020-07-01] MEDS ORDERED: PERC5TAB12 PO (11:27)
== END 2020-07-01 11:45 | disposition home or self-care (01) ==
LOC: M ED 09:37
DX: M54.9 Dorsalgia, unspecified (principal); M25.512 Pain in left shoulder; R20.2 Paresthesia of skin; F17.200 Nicotine dependence, unspecified, uncomplicated; M51.36 Other intervertebral disc degeneration, lumbar region; M50.30 Other cervical disc degeneration, unspecified cervical region; Z91.040 Latex allergy status

== ENCOUNTER → 2020-11-12 | Outpatient (CLI) | payer SELFPAY ==
[~2020-11-12] MED LIST changes: +ACET-683 PO; +IBUP-1022 PO; +PERC5TAB12 PO
--- NOTE | 2020-11-12 17:56 | REP ---
INDICATION: UNSPECIFIED ASTHMA, UNCOMPLICATED COMPARISON: 04/14/2020 TECHNIQUE: PA and lateral. FINDINGS: The mediastinum and cardiac silhouette are normal. The lung watkins are clear and without acute consolidation, effusion, or pneumothorax. The skeletal structures are intact and normal. IMPRESSION: No acute cardiopulmonary process. No focal consolidation. <Electronically signed by Angel Metzger > 11/12/20 8404
== END ==
LOC: M RAD 10:30
PROVIDERS: ATTEND Family Medicine Addiction Medicine
DX: J45.909 Unspecified asthma, uncomplicated (principal)

== ENCOUNTER → 2020-12-16 | Outpatient (CLI) | payer MEDICAID, SELFPAY ==
--- NOTE | 2020-12-16 15:38 | REP ---
INDICATION: HEADACHE. COMPARISON: None. TECHNIQUE: CT brain performed in the axial plane. Coronal reconstruction images are performed. FINDINGS: The ventricles are normal in size and position.. There is no midline shift or mass effect. Peraza-white differentiation is well maintained. There is no acute intracranial hemorrhage or extra-axial fluid collection. Bone window examination is unremarkable. The visualized mastoid air cells are clear. There is extensive almost complete opacification of right ethmoid air cells and frontal sinuses. There is moderate diffuse mucosal thickening in the left ethmoid and frontal sinuses as well as the bilateral maxillary and sphenoid sinuses. IMPRESSION: Negative noncontrast CT brain. Diffuse sinusitis. <Electronically signed by Steven Peraza > 12/16/20 5112
== END ==
LOC: M PLAIMG 09:09
PROVIDERS: ATTEND Family Medicine Addiction Medicine
DX: R51.9 Headache, unspecified (principal)

== ENCOUNTER 2021-03-01 18:40 | Emergency (ER) | payer OTHER, MEDICAID ==
[~2021-03-01] VITALS: Ht 180.3 cm; Wt 85.3 kg
[2021-03-02] MEDS ORDERED: KETOROLAC 60MG 2ML VIAL IM ONE (01:20)
[2021-03-02] MEDS ORDERED: IBUP-1022 PO (01:22)
[2021-03-02 01:49] VITALS: BP 121/72
--- NOTE | 2021-03-02 08:03 | REP ---
INDICATION: injured while using a drill COMPARISON: None. TECHNIQUE: Internal rotation, external rotation, and Y view. FINDINGS: No acute fracture or dislocation. The acromioclavicular and glenohumeral joints are intact. No periarticular calcifications or degenerative changes are appreciated. Sub acromial space is normal. Surrounding soft tissues are unremarkable. IMPRESSION: Normal right shoulder radiographs. <Electronically signed by Angel Metzger > 03/02/21 0800
--- NOTE | 2021-03-02 08:04 | REP ---
INDICATION: pain after twisting injury COMPARISON: None. TECHNIQUE: AP, lateral, bilateral oblique views of the right elbow. FINDINGS: No acute fracture or dislocation is appreciated. Joint spaces and surrounding soft tissues appear normal. Lateral view demonstrates normal positioning to the anterior and posterior fat pads without evidence for effusion/hemarthrosis. No subcutaneous emphysema or foreign body identified. IMPRESSION: No acute fracture or dislocation. <Electronically signed by Angel Metzger > 03/02/21 0800
--- NOTE | 2021-03-02 08:04 | REP ---
INDICATION: injured while using a drill COMPARISON: None. TECHNIQUE: AP, lateral, bilateral oblique views right wrist. FINDINGS: The carpal bones, surrounding osseous structures, soft tissues, and joint spaces are normal. There is no evidence for acute fracture or dislocation. No subcutaneous emphysema or radiodense foreign body. IMPRESSION: Normal wrist series. No acute fracture or dislocation. <Electronically signed by Angel Metzger > 03/02/21 0855
== END 2021-03-02 01:50 | disposition home or self-care (01) ==
LOC: M ED 18:40
DX: S53.401A Unspecified sprain of right elbow, initial encounter (principal); X58.XXXA Exposure to other specified factors, initial encounter; Y92.89 Other specified places as the place of occurrence of the external cause; Y93.89 Activity, other specified; Y99.0 Civilian activity done for income or pay; Z86.16 Personal history of COVID-19; F12.10 Cannabis abuse, uncomplicated; Z91.040 Latex allergy status
CPT/HCPCS: 73030; 73080; 73110; 96372; 99284; J1885

== ENCOUNTER → 2022-09-29 | Outpatient (REF) | LOC: M PLAIMG 08:52 | PROVIDERS: ATTEND Internal Medicine | DX: R52 Pain, unspecified (principal) ==

== ENCOUNTER → 2023-05-26 | Outpatient (CLI) | payer OTHER, MEDICAID | LOC: M SOG 08:31 | PROVIDERS: ATTEND Orthopaedic Surgery | DX: M47.812 Spondylosis without myelopathy or radiculopathy, cervical region (principal); M25.511 Pain in right shoulder ==

== ENCOUNTER → 2023-06-22 | Outpatient (CLI) | payer OTHER | LOC: M PLARAD 09:25 | PROVIDERS: ATTEND Orthopaedic Surgery | DX: M54.2 Cervicalgia (principal) ==

== ENCOUNTER → 2023-08-22 | Outpatient (REF) | payer OTHER ==
[2023-08-22 19:11] LABS: BASO # 0.1 10^3/uL (0.0-0.2); BASO % 0.7 % (0.0-1.0); EOS # 0.2 10^3/uL (0.0-0.5); EOS % 2.2 % (0.0-3.0); HEMATOCRIT 43.4 % (42.0-52.0); HEMOGLOBIN 14.8 g/dl (13.5-17.5); LYMPH # 1.6 10^3/uL (1.5-5.0); LYMPH % 19.1 % (24.0-44.0); MEAN CORPUSCULAR HEMOGLOBIN 31.6 pg (27.0-33.0); MEAN CORPUSCULAR HGB CONC 34.1 g/dl (32.0-36.5); MEAN CORPUSCULAR VOLUME 92.5 fl (80.0-96.0); MONO # 0.7 10^3/uL (0.0-0.8); MONO % 8.2 % (2.0-8.0); NEUTROPHILS # 5.9 10^3/uL (1.5-8.5); NEUTROPHILS % 69.3 % (36.0-66.0); PLATELET COUNT, AUTOMATED 297 10^3/uL (150-450); RED BLOOD COUNT 4.69 10^6/uL (4.30-6.10); WHITE BLOOD COUNT 8.5 10^3/uL (4.0-10.0)
[2023-08-22 19:32] LABS: ALBUMIN 3.6 G/DL (3.2-5.2); ALKALINE PHOSPHATASE 81 U/L (46-116); ALT/SGPT 19 U/L (7.0-40); AST/SGOT < 8 U/L (<34); BILIRUBIN,TOTAL 0.3 MG/DL (0.3-1.2); BLOOD UREA NITROGEN 16 MG/DL (9-23); CALCIUM LEVEL 8.8 MG/DL (8.5-10.1); CARBON DIOXIDE LEVEL 27 MMOL/L (20-31); CHLORIDE LEVEL 109 MMOL/L (98-107); CHOLESTEROL LEVEL 182 MG/DL (<200); CHOLESTEROL RISK RATIO 4.34 (<5); CREATININE FOR GFR 0.99 MG/DL (0.70-1.30); GLOMERULAR FILTRATION RATE > 60.0 (>60); GLUCOSE, FASTING 96 MG/DL (60-100); HDL CHOLESTEROL 41.9 MG/DL (>40); LDL CHOLESTEROL 116.3 MG/DL (<100); NON-HDL-C 140.1 MG/DL; POTASSIUM SERUM 5.2 MMOL/L (3.5-5.1); SODIUM LEVEL 139 MMOL/L (136-145); TOTAL PROTEIN 6.3 G/DL (5.7-8.2); TRIGLYCERIDES LEVEL 119 MG/DL (<150)
[2023-08-22 19:34] LABS: TESTOSTERONE 363 NG/DL (241-827)
[2023-08-22 19:35] LABS: FREE T4 0.97 NG/DL (0.89-1.76)
== END ==
LOC: M LAB REF 17:26
PROVIDERS: ATTEND Family Medicine Addiction Medicine
DX: R53.81 Other malaise (principal); Z68.26 Body mass index [BMI] 26.0-26.9, adult

== ENCOUNTER → 2023-09-27 | Outpatient (REF) | payer OTHER ==
[2023-09-27 14:03] LABS: BLOOD UREA NITROGEN 15 MG/DL (9-23); CALCIUM LEVEL 9.1 MG/DL (8.5-10.1); CARBON DIOXIDE LEVEL 28 MMOL/L (20-31); CHLORIDE LEVEL 106 MMOL/L (98-107); CREATININE FOR GFR 1.03 MG/DL (0.70-1.30); GLOMERULAR FILTRATION RATE > 60.0 (>60); GLUCOSE, FASTING 97 MG/DL (60-100); MAGNESIUM LEVEL 1.9 MG/DL (1.8-2.4); POTASSIUM SERUM 4.3 MMOL/L (3.5-5.1); SODIUM LEVEL 140 MMOL/L (136-145)
[2023-09-27 14:05] LABS: TESTOSTERONE 457 NG/DL (241-827)
[2023-09-27 14:06] LABS: FREE T4 1.07 NG/DL (0.89-1.76)
== END ==
LOC: M LAB REF 13:12
PROVIDERS: ATTEND Family Medicine Addiction Medicine
DX: R94.6 Abnormal results of thyroid function studies (principal); E78.5 Hyperlipidemia, unspecified; R25.2 Cramp and spasm; R89.1 Abnormal level of hormones in specimens from other organs, systems and tissues

== ENCOUNTER → 2024-01-03 | Outpatient (REF) | payer OTHER | LOC: M LAB REF 16:23 | PROVIDERS: ATTEND Family Medicine Addiction Medicine | DX: J02.9 Acute pharyngitis, unspecified (principal) ==

== ENCOUNTER 2024-01-17 20:49 | Emergency (ER) | payer OTHER, SELFPAY ==
[~2024-01-17] VITALS: Ht 180.3 cm; Wt 83.9 kg
[~2024-01-17 20:49] MED LIST changes: -CYCL5TAB PO; +CYCL5TAB4 PO
[2024-01-17 20:57] VITALS: BP 142/100; TEMP 98.2; O2SAT 97
== END 2024-01-17 23:10 | disposition left against medical advice (07) ==
LOC: M ED 20:49
DX: Z53.21 Procedure and treatment not carried out due to patient leaving prior to being seen by health care provider (principal)

== ENCOUNTER → 2024-04-17 | Outpatient (CLI) | payer OTHER | LOC: M PLAIMG 12:44 | PROVIDERS: ATTEND Orthopaedic Surgery | DX: M19.011 Primary osteoarthritis, right shoulder (principal) ==

== ENCOUNTER → 2024-06-12 | Outpatient (CLI) | payer OTHER ==
[2024-06-12 13:59] LABS: BASO # 0.1 10^3/uL (0.0-0.2); BASO % 0.7 % (0.0-1.0); EOS # 0.3 10^3/uL (0.0-0.5); EOS % 3.3 % (0.0-3.0); HEMATOCRIT 46.4 % (42.0-52.0); HEMOGLOBIN 15.4 g/dl (13.5-17.5); LYMPH # 2.1 10^3/uL (1.5-5.0); LYMPH % 25.3 % (24.0-44.0); MEAN CORPUSCULAR HEMOGLOBIN 30.6 pg (27.0-33.0); MEAN CORPUSCULAR HGB CONC 33.2 g/dl (32.0-36.5); MEAN CORPUSCULAR VOLUME 92.2 fl (80.0-96.0); MONO # 0.6 10^3/uL (0.0-0.8); NEUTROPHILS # 5.2 10^3/uL (1.5-8.5); NEUTROPHILS % 62.8 % (36.0-66.0); PLATELET COUNT, AUTOMATED 295 10^3/uL (150-450); RED BLOOD COUNT 5.03 10^6/uL (4.30-6.10); WHITE BLOOD COUNT 8.2 10^3/uL (4.0-10.0)
[2024-06-12 14:07] LABS: INR 0.86
[2024-06-12 14:57] LABS: ALBUMIN 3.7 G/DL (3.2-5.2); ALKALINE PHOSPHATASE 78 U/L (40-129); ALT/SGPT 21 U/L (7.0-40); AST/SGOT 12 U/L (<34); BILIRUBIN,TOTAL 0.3 MG/DL (0.3-1.2); BLOOD UREA NITROGEN 14 MG/DL (9-23); CARBON DIOXIDE LEVEL 29 MMOL/L (20-31); CHLORIDE LEVEL 103 MMOL/L (98-107); CREATININE FOR GFR 0.97 MG/DL (0.70-1.30); GLOMERULAR FILTRATION RATE > 90.0 (>60); GLUCOSE, FASTING 152 MG/DL (60-100); POTASSIUM SERUM 5.4 MMOL/L (3.5-5.1); SODIUM LEVEL 140 MMOL/L (136-145); TOTAL PROTEIN 6.8 G/DL (5.7-8.2)
== END ==
LOC: M LAB 13:08
PROVIDERS: ATTEND Orthopaedic Surgery
DX: M13.811 Other specified arthritis, right shoulder (principal)

== ENCOUNTER → 2024-10-16 | Outpatient (CLI) | payer OTHER | LOC: M SOG 06:53 | PROVIDERS: ATTEND Orthopaedic Surgery | DX: M19.011 Primary osteoarthritis, right shoulder (principal); M25.511 Pain in right shoulder ==

== ENCOUNTER → 2025-01-10 | Outpatient (CLI) | payer OTHER ==
[~2025-01-10] MED LIST changes: -IBUP-1022 PO; +IBUP600T42 PO
[2025-01-10 14:01] LABS: BASO # 0.0 10^3/uL (0.0-0.2); BASO % 0.6 % (0.0-1.0); EOS # 0.2 10^3/uL (0.0-0.5); EOS % 2.5 % (0.0-3.0); LYMPH # 1.5 10^3/uL (1.5-5.0); LYMPH % 21.5 % (24.0-44.0); MONO # 0.7 10^3/uL (0.0-0.8); MONO % 10.3 % (2.0-8.0); NEUTROPHILS # 4.4 10^3/uL (1.5-8.5); NEUTROPHILS % 64.7 % (36.0-66.0); PLATELET COUNT, AUTOMATED 305 10^3/uL (150-450)
[2025-01-10 14:09] LABS: INR 0.89
[2025-01-10 14:19] LABS: ESTIMATED AVERAGE GLUCOSE 126.0 MG/DL (60-110)
[2025-01-10 14:28] LABS: C REACTIVE PROTEIN QUANTITATIV < 0.50 MG/DL (<1.0)
[2025-01-10 14:29] LABS: ALT/SGPT 20 U/L (7.0-40); AST/SGOT 18 U/L (<34); CALCIUM LEVEL 8.7 MG/DL (8.5-10.1); CARBON DIOXIDE LEVEL 27 MMOL/L (20-31); CHLORIDE LEVEL 107 MMOL/L (98-107); CREATININE FOR GFR 0.95 MG/DL (0.70-1.30); GLOMERULAR FILTRATION RATE > 90.0 (>60); POTASSIUM SERUM 4.3 MMOL/L (3.5-5.1); SODIUM LEVEL 143 MMOL/L (136-145)
== END ==
LOC: M LAB 12:58
PROVIDERS: ATTEND Orthopaedic Surgery
DX: M13.811 Other specified arthritis, right shoulder (principal)